=== PATIENT | female | born 1985 | race Caucasian/White ===

== ENCOUNTER → 2016-09-18 16:13 | Observation (INO) ==
[2016-09-18 12:54] LABS: Basophils % 0.2 %; Eosinophils # 0.1 K/mcL (0.0-0.6); Eosinophils % 0.6 %; Hemoglobin 12.5 g/dL (11.5-15.4); Immature Granulocytes % 0.7 % (0-4); Immature Platelets 14.4 % (1.1-6.1); Lymphocytes # 1.8 K/mcL (0.6-4.6); Lymphocytes % 14.8 %; Mean Corpuscular HGB Conc 32.1 g/dL (31.6-35.5); Mean Corpuscular Volume 81.3 fL (83.0-100.0); Mean Platelet Volume 11.9 fL (9.4-12.4); Monocytes % 7.9 %; Neutrophils # 9.3 K/mcL (1.6-8.9); Platelet Count 187 K/mcL (140-400); Red Cell Distribution Width 15.2 % (11.5-14.5); Segmented Neutrophils % 75.8 %
[2016-09-18 13:05] LABS: Alanine Aminotransferase 11 Units/L (0-55); Aspartate Amino Transferase 13 Units/L (5-34); BUN/Creatinine Ratio 9 (6-26); Blood Urea Nitrogen 5 mg/dL (7-20); Lactate Dehydrogenase 178 Units/L (159-327); Uric Acid 6.3 mg/dL (2.6-6.0); eGFR For African Americans > 60 (> 60); eGFR For Non-African Americans > 60 (> 60)
[2016-09-18 13:50] LABS: Protein/Creatinine Ratio,Urine 0.21 mg/mg (0-0.20)
--- NOTE | 2016-09-18 14:11 | OB/GYN Progress Note ---
Date of Encounter: 09/18/16 Time of Encounter: 14:08 - Assessment and Plan (1) 37 weeks gestation of Current Visit: Yes Status: Acute (2) Gestational hypertension Current Visit: Yes Status: Acute BP intermittently mild range while in triage with majority of BP's WNL. PIH labs and UPCR WNL. Will monitor BP for 4 hours. IF BP's remain normal and pt remains asx will discharge home with follow-up tomorrow. POC per Dr. Lowe Qualifiers: Trimester: third trimester Qualified Code(s): O13.3 - Gestational [ -induced] hypertension without significant proteinuria, third trimester (3) Polyhydramnios affecting Current Visit: Yes Status: Acute (4) LGA (large for gestational age) fetus Current Visit: Yes Status: Acute (5) Bicornate uterus complicating Current Visit: Yes Status: Acute Qualifiers: Trimester: third trimester Qualified Code(s): O34.03 - Maternal care for unspecified congenital malformation of uterus, third trimester; Q51.3 - Bicornate uterus Subjective - Subjective Principal diagnosis: HTN Interval history: 31 year-old presenting at 37w4d with c/o elevated blood pressure. She reports not feeling well this am with headache and blurry vision so she checked her blood pressure at home. She had 2 blood pressures at home that were 140's/90 's-140's/101. She reports that the headache and blurry vision have now resolved. She denies LOF or VB. Decreased movement this am but has improved now. This has been complicated by bicornate uterus, LGA fetus , and polyhydramnios. No other concerns. Antepartum ROS: movement normal, no loss of fluid, no vaginal bleeding, no contractions Objective - Vital Signs Vital Signs: Intake and Output 09/17/16 09/18/16 09/18/16 23:59 07:59 15:59 Other: Weight 102.6 kg Patient Weight 09/18/16 23:59 Weight 102.6 kg - Exam FHR: category 1 FHR comments: NST reactive Abdomen: Present: soft, gravid. Absent: tenderness Uterus: Absent: tenderness Cervical dilation: 3 Cervix effacement: 70 station: bolottable Comments: reflexes 2+, no clonus - Labs Labs: Abnormal lab results WBC 12.3 K/mcL (4.3-11.1) H 09/18/16 12:34 MCV 81.3 fL (83.0-100.0) L 09/18/16 12:34 MCH 26.0 pg (28.0-33.3) L 09/18/16 12:34 RDW 15.2 % (11.5-14.5) H 09/18/16 12:34 Neutrophils # 9.3 K/mcL (1.6-8.9) H 09/18/16 12:34 Immature Plt Fraction 14.4 % (1.1-6.1) H 09/18/16 12:34 BUN 5 mg/dL (7-20) L 09/18/16 12:43 Uric Acid 6.3 mg/dL (2.6-6.0) H 09/18/16 12:43 Protein/Creatinin Ratio 0.21 mg/mg (0-0.20) H 09/18/16 13:34 Urine Total Protein 63 mg/dL (1-14) H 09/18/16 13:34
== END | disposition home or self-care (01) ==
LOC: 1NENULAB
PROVIDERS: ADMIT Student in an Organized Health Care Education/Training Program; ATTEND Student in an Organized Health Care Education/Training Program

== ENCOUNTER 2016-09-19 12:22 | Inpatient (IN) ==
--- NOTE | 2016-09-19 11:33 | Anesthesia Evaluation PreOp ---
Date of Encounter: 09/19/16 Time of Encounter: 11:31 - Past History Planned Operation: vaginal del, , PIH induction 38wks Cardiac History: Denies any Significant Hx, Other (occ ARMENDARIZ, yesterday and today blurred vision at home, no current Medications) Pulmonary History: Denies Any Significant HX, Snore (reports just during ) TRAVELER CHANGER History: Denies Any Significant HX Other Medical History: Denies Any Significant HX Anesthesia History: No Prior Anesthetic Complications, Past Anesthesia ( previous epidural, no family Hx.) : Yes Anesthesia Exam - HEENT Pupil (Motor): Pupils equal Mallampati: III Teeth: Normal Oral Opening: Greater than 3 - TRAVELER CHANGER LOC: Oriented TRAVELER CHANGER Motor: Normal RUE, Normal LUE, Normal RLE, Normal LLE, Normal Face TRAVELER CHANGER Sensory: Normal: RUE, LUE, RLE, LLE, Face - Cardiac Rhythm: Regular Murmur: None - Pulmonary Breath Sounds: bilateral Clear Respiratory Effort: Symmetrical Anesthesia Assess/Plan ASA Score: 2 Modified [place] Scale for Level of Consciousness: Cooperative, oriented, and tranquil Anesthetic Plan: General, Regional Monitoring Plan: Standard Monitors
--- NOTE | 2016-09-19 11:33 | OB/GYN History & Physical ---
Date of Encounter: 09/19/16 Time of Encounter: 11:30 Assessment and Plan (1) 37 weeks gestation of Current visit: No Status: Acute (2) LGA (large for gestational age) fetus Current visit: No Status: Acute (3) Polyhydramnios affecting Current visit: No Status: Acute Induction of labor with pitocin clear liquids epidural and nubain as desired anticipate History of Present Illness Chief complaint: Induction of labor HPI: Ms. Niño is a 31 year old female sent from office for induction of labor for a history of increased BP, and polyhydramonios. Reports good movement , denies vaginal bleeding, leaking of fluid or contractions, also denies headache, visual changes or RUQ pain. Las: A+, Rubella immune, GBS and all other serologies negative. Past Med Surg Social Fam HX - Past Medical History Medical history: asthma - Social History Smoking Status: Unknown if ever smoked - Family History Father Living Status: Still Living Obstetrical History - Pregnancies : 3 Para: 1 Term: 1 : 0 Ab's: 1 Livin Exam - Constitutional Constitutional: well developed, well nourished, no acute distress, average body habitus - Neck Neck exam: full ROM - Lungs Respiratory exam: CTAB - Cardiovascular Cardiovascular exam: RRR, +S1, +S2 - Abdomen Abdomen: Present: bowel sounds normal, gravid, non tender - Extremities Extremities exam: normal capillary refill, normal inspection - Cervix Dilation: 4 Effacement: 75 Station: -2 - Uterus Uterus exam: Present: normal size, normal contour Results All other labs normal. - VTE Reasons for not Prescribing Prophylaxis: Medical contraindication
[2016-09-19] MEDS: Ringers Solution, Lactated 1,000 ML IVC SCH ×2 (11:39→20:21)
[2016-09-19 11:45] LABS: Basophils % 0.3 %; Eosinophils # 0.1 K/mcL (0.0-0.6); Eosinophils % 0.6 %; Hematocrit 38.8 % (35.3-44.9); Hemoglobin 12.3 g/dL (11.5-15.4); Immature Granulocytes % 1.5 % (0-4); Lymphocytes # 1.7 K/mcL (0.6-4.6); Lymphocytes % 14.1 %; Mean Corpuscular HGB Conc 31.7 g/dL (31.6-35.5); Mean Corpuscular Hemoglobin 25.7 pg (28.0-33.3); Mean Corpuscular Volume 81.2 fL (83.0-100.0); Mean Platelet Volume 11.7 fL (9.4-12.4); Monocytes % 8.2 %; Neutrophils # 9.3 K/mcL (1.6-8.9); Platelet Count 176 K/mcL (140-400); Red Blood Count 4.78 M/mcL (3.82-4.97); Red Cell Distribution Width 15.2 % (11.5-14.5); Segmented Neutrophils % 75.3 %
[~2016-09-19 12:22] MED LIST: Famotidine 20 MG/2 ML VIAL IVP PRN; Naloxone 0.4 MG/ML INJ IVP PRN; Ondansetron 4 MG/2 ML VIAL IVP PRN; Oxytocin 20 units/ LR 1000 mL 20 UNIT/1,000 ML BAG IVC SCH
[2016-09-19] MEDS ORDERED: *HR* Nalbuphine 20 MG/ML AMPUL IVP PRN (18:51)
[2016-09-19] MEDS ORDERED: Epidural Premix (fent/bupiv) 110 ML EP ONE (19:18)
--- NOTE | 2016-09-19 19:44 | Anesthesia Procedures ---
Date of Encounter: 09/19/16 Time of Encounter: 19:24 Procedures: Anesthesia - Epidural/Spinal Patient ID/Chart reviewed: Yes Patient examined: Yes OB Eval: Gestational age: 37 OB Eval: : 2 OB Eval: Hx Para: 1 OB Eval: Contractions: Non-stressed pattern Consent Obtained: Yes Site Prep: Aseptic Technique, Sterile prep and drape, 0.5% Chlorhexidine/Alcohol Patient position: upright Local Anesthetic: Lidocaine 1% Amount of Local Anesthetic used: 2 Touhy Needle Gauge: 18 Touhy Needle Depth (cm): 7 Catheter Depth at Skin (cm): 11 Test Dose (1.5% Lido + Epi): Volume given (mls): 3 Test Dose Result: Negative Loading Dose: Other: 12 from solution Loading Dose Administered: Thru Catheter Infusion Med: 0.125% Bupivacaine w/ 2 mcg/ml Fentanyl Infusion Rate (mls/hr): [address]: Tegaderm, Tape Interspace Used: L3-L4 (attempted at L4-5 times 2 passes moved up 1 level with same skin hole.) Loss of Resistance (TRAVON): Yes (saline) Blood: No CSF: No Paresthesia: No Vitals + FHT's: vss though out, RN's per FHR stable
[2016-09-19] MEDS ORDERED: EPHEDrine 50 MG/ML VIAL ONE (19:47)
--- NOTE | 2016-09-19 21:30 | OB Labor Progress Note ---
Date of Encounter: 09/19/16 Time of Encounter: 21:28 Labor Progress Note - Subjective Subjective: Pt resting comfortable in bed with epidural - Cervix Cervix: 5/80/-2 - Heart Tones Heart Tones: 135/moderate/+accels/-decels - [place]: 2-4 - Interventions Interventions: AROM for clear fluid - Plan Plan: Continue pitocin per policy Anticpate
[2016-09-19] MEDS ORDERED: Lidocaine 1% 20 ML MDV ONE (22:39)
--- NOTE | 2016-09-19 23:01 | OB/GYN Procedure Note ---
Delivery - Delivery Date: 09/19/16 Provider: Padmini Rhodes Intrapartum events: polyhydramnios Delivery induction: oxytocin Delivery augmentation: rupture of membranes Delivery monitor: external FHT, external uterine Anesthesia: epidural Estimated Blood Loss: 100 - Infant (s) A Delivery Date: 09/19/16 Delivery Time: 22:36 Presentation: vertex Position: MARY Route of delivery: Gender: Male Viability: Viable Pounds: 7 Ounces: 15 at 1 minute: 8 at 5 mins: 9 Shoulder Dystocia: not encountered Specimens collected: cord blood Placenta: spontaneous, uterine exploration Cord: nuchal cord, 3 umbilical vessels, nuchal cut - Repair Episiotomy: none Laceration Description: Perineal - 2nd Degree - Complications Delivery complications: none Delivery comments: The patient was complete and pushing with epidural anesthesia with a spontaneous vaginal delivery in the MARY position of a vigorous male infant weighing 7lbs. 15 oz. with Apgars of 8 at 1 minute and 9 at 5 minutes. Tight nuchal cord was unable to be reduced and was cut on the perineum. was placed on the maternal abdomen. Cord blood obtained. The placenta was delivered spontaneous and intact. Second-degree perineal laceration which was not hemostatic and was repaired with 3-0 Vicryl in the usual fashion with 10 mL of 1% lidocaine for local anesthesia. Estimated blood loss 100 mL, complications none. Both mother and are recovering in stable condition in the LDR - Disposition Mom disposition: stable in LDR [place] disposition: stable in LDR
[2016-09-20] MEDS ORDERED: Oxytocin 20 units/ LR 1000 mL 20 UNIT/1,000 ML BAG IVC SCH (01:15)
[2016-09-20] MEDS ORDERED: Acetaminophen 325 MG TABLET PO PRN (01:15)
[2016-09-20] MEDS ORDERED: Measles/Mumps/Rubella Vacc 0.5 ML VIAL SQ PRN (01:15)
[2016-09-20] MEDS: Ibuprofen 600 MG TABLET PO SCH ×3 (02:39→18:26)
[2016-09-20 06:03] LABS: Basophils % 0.2 %; Eosinophils % 0.3 %; Hematocrit 29.1 % (35.3-44.9); Immature Granulocytes % 0.5 % (0-4); Lymphocytes # 1.9 K/mcL (0.6-4.6); Lymphocytes % 14.2 %; Mean Corpuscular Hemoglobin 26.4 pg (28.0-33.3); Mean Corpuscular Volume 82.7 fL (83.0-100.0); Mean Platelet Volume 11.9 fL (9.4-12.4); Monocytes % 7.4 %; Neutrophils # 10.2 K/mcL (1.6-8.9); Platelet Count 124 K/mcL (140-400); Red Blood Count 3.52 M/mcL (3.82-4.97); Red Cell Distribution Width 15.3 % (11.5-14.5); Segmented Neutrophils % 77.4 %
[2016-09-20 06:06] LABS: Hemoglobin 9.3 g/dL (11.5-15.4)
[2016-09-20] MEDS: Prenatal Vit/FA 1 EACH TABLET PO SCH (07:51)
--- NOTE | 2016-09-20 10:26 | OB/GYN Progress Note ---
Date of Encounter: 09/20/16 Time of Encounter: 10:24 - Assessment and Plan (1) Status post vaginal delivery Current Visit: Yes Status: Acute patient doing well PPD#1, cont current inpt care, aim for discharge tomorrow Subjective - Subjective Patient reports: appetite normal, voiding normally, pain well controlled, ambulating normally : doing well, nursing well Objective - Latest Vital Signs Latest vital signs: Vital Signs Temp Pulse Resp BP Pulse Ox 09/20/16 07:30 98.4 F 112 16 119/77 09/20/16 03:30 97.9 F 112 14 128/83 98 09/20/16 02:35 98.8 F 111 14 130/80 98 09/20/16 01:20 98.4 F 95 16 154/93 99 Intake and Output 09/19/16 09/20/16 09/20/16 23:59 07:59 15:59 Intake Total 1000 / 1000 500 / 500 240 / 240 Output Total 1000 / 1000 Balance 1000 / 1000 -500 / -500 240 / 240 Intake: IV Fluids 1000 / 1000 Lactated Ringers 1,000 ML 1000 / 1000 @ 125 mls/hr IVC .Q8H DANIELA Rx#:[id number] Oral 500 / 500 240 / 240 Output: Urine 1000 / 1000 Other: Meal Breakfast Percent of Meal Consumed 100% Weight 101.6 kg Patient Weight 09/20/16 23:59 Weight 101.6 kg - Exam Lungs: bilateral: normal Chest: Normal S1, Normal S2 Extremities: Present: normal Abdomen: Present: normal appearance Uterus: Present: normal - Labs Labs: Laboratory Results - last 24 hr 09/19/16 09/20/16 10:55 05:47 WBC 12.3 H 13.2 H RBC 4.78 3.52 L Hgb 12.3 9.3 L D Hct 38.8 29.1 L MCV 81.2 L 82.7 L MCH 25.7 L 26.4 L MCHC 31.7 32.0 RDW 15.2 H 15.3 H Plt Count 176 124 L MPV 11.7 11.9 Immature Gran % 1.5 0.5 Seg Neutrophils % 75.3 77.4 Lymphocytes % 14.1 14.2 Monocytes % 8.2 7.4 Eosinophils % 0.6 0.3 Basophils % 0.3 0.2 Neutrophils # 9.3 H 10.2 H Lymphocytes # 1.7 1.9 Monocytes # 1.0 1.0 Eosinophils # 0.1 0.0 Basophils # 0.0 0.0
[2016-09-20] MEDS ORDERED: Famotidine 20 MG TABLET PO PRN (20:59)
[2016-09-21] MEDS: Ibuprofen 600 MG TABLET PO SCH (05:49)
[2016-09-21 08:34] VITALS: BP 126/84
[2016-09-21] MEDS: Prenatal Vit/FA 1 EACH TABLET PO SCH (08:47)
--- NOTE | 2016-09-21 09:52 | Discharge Summary ---
Date of Encounter: 09/21/16 Time of Encounter: 09:48 - Discharge Diagnosis (1) Anemia, Priority: Secondary Status: Acute Comments: Iron supplementation (2) Status post vaginal delivery Priority: Primary Status: Acute (3) Gestational hypertension Priority: Secondary Status: Resolved Comments: Blood pressure stable Qualifiers: Trimester: third trimester Qualified Code(s): O13.3 - Gestational [ -induced] hypertension without significant proteinuria, third trimester (4) Polyhydramnios affecting Priority: Secondary Status: Resolved (5) Thrombocytopenia Priority: Secondary Status: Resolved Comments: CBC today to document stable, follow-up CBC to confirm resolution - Discharge Medications Prescriptions: Ibuprofen [Motrin] 600 mg PO Q6HR #30 tablet Ferrous Sulfate 325 mg PO BIDWM #60 tablet Home Medications: Formula Tablet 09/19/16 [History] Acetaminophen [Tylenol] 650 mg PO Q6HR PRN #0 tablet 09/21/16 [Rx] Ferrous Sulfate 325 mg PO BIDWM #60 tablet 09/21/16 [Rx] Ibuprofen [Motrin] 600 mg PO Q6HR #30 tablet 09/21/16 [Rx] Allergies/Adverse Reactions: Allergies No Known Allergies Allergy (Verified 09/19/16 18:55) Data Procedures and tests throughout hospitalization: Laboratory Tests 09/19/16 09/20/16 10:55 05:47 WBC 12.3 H 13.2 H RBC 4.78 3.52 L Hgb 12.3 9.3 L D Hct 38.8 29.1 L MCV 81.2 L 82.7 L MCH 25.7 L 26.4 L MCHC 31.7 32.0 RDW 15.2 H 15.3 H Plt Count 176 124 L MPV 11.7 11.9 Immature Gran % 1.5 0.5 Seg Neutrophils % 75.3 77.4 Lymphocytes % 14.1 14.2 Monocytes % 8.2 7.4 Eosinophils % 0.6 0.3 Basophils % 0.3 0.2 Neutrophils # 9.3 H 10.2 H Lymphocytes # 1.7 1.9 Monocytes # 1.0 1.0 Eosinophils # 0.1 0.0 Basophils # 0.0 0.0 Date of admission: 09/19/16 12:22 Primary care physician: PCP NO Consults: 09/20/16 01:15 Consult to Volunteer Services Manager [CONS] Routine Comment: Vaginal delivery, consult needed Discharging clinician: Padmini Rhodes Anticipated date of discharge: 09/21/16 - Patient Status Disposition: Home, Self-Care Condition: Good Functional capacity at discharge: independent ambulation Overall status at discharge: patient is progressing back to baseline - Discharge Instructions Follow Up With: NO,PCP [Primary Care Provider] - - Diet and Activity Activity: increase activity as tolerated, resume usual activities as tolerated Diet: regular diet Hospital Course Procedures: Reason for admission: induction of labor, IUP at term, other (Polyhydramnios), pre-eclampsia Delivery: Episiotomy: none Laceration: 2nd degree Other procedures: none complications: other (Thrombocytopenia) Discharge diagnosis: IUP at term delivered, pre-eclampsia baby: male Hospital course: Patient is tolerating regular diet. She has minimal lochia and no clots. She has no cramping. Her pain is controlled with ibuprofen. She denies headache, blurred vision or epigastric pain. She is requesting discharge Time Attestation: Total time spent providing and/or coordinating discharge services: Time Spent: Less than 30 minutes Exam - Constitutional Vitals: Temp Pulse Resp BP Pulse Ox 97.6 F 86 16 126/84 98 09/21/16 07:30 09/21/16 07:30 09/21/16 07:30 09/21/16 07:30 09/21/16 07:30 General appearance IM: A&O X 3, pleasant, no acute distress, answers questions appropriately - Respiratory Respiratory exam: Absent: respiratory distress - Cardiovascular Cardiovascular exam IM: Absent: irregular rhythm - GI/Abdominal GI/Abdominal exam IM: normal bowel sounds, soft, no peritoneal signs - Rectal Rectal exam: deferred - Uterine Tone: Firm Uterus Position: 1 Finger Below Umbilicus - Extremities Exam Extremities exam IM: Present: pedal edema, warm. Absent: calf tenderness, tenderness - Neurological Exam Neurological exam: no focal deficits
[2016-09-21 10:06] LABS: Basophils % 0.3 %; Eosinophils # 0.2 K/mcL (0.0-0.6); Eosinophils % 1.5 %; Hematocrit 31.5 % (35.3-44.9); Hemoglobin 9.8 g/dL (11.5-15.4); Immature Granulocytes % 1.7 % (0-4); Lymphocytes # 1.8 K/mcL (0.6-4.6); Lymphocytes % 15.4 %; Mean Corpuscular HGB Conc 31.1 g/dL (31.6-35.5); Mean Corpuscular Hemoglobin 25.9 pg (28.0-33.3); Mean Corpuscular Volume 83.3 fL (83.0-100.0); Mean Platelet Volume 11.2 fL (9.4-12.4); Monocytes # 0.9 K/mcL (0.0-1.3); Monocytes % 7.3 %; Neutrophils # 8.6 K/mcL (1.6-8.9); Platelet Count 153 K/mcL (140-400); Red Blood Count 3.78 M/mcL (3.82-4.97); Red Cell Distribution Width 15.4 % (11.5-14.5); Segmented Neutrophils % 73.8 %
== END 2016-09-21 14:37 | disposition home or self-care (01) | DRG 775 ==
LOC: 1NENULAB → 1NENUOBS 09-20 01:14
PROVIDERS: ADMIT Obstetrics & Gynecology; ATTEND Obstetrics & Gynecology